=== PATIENT | female | born 1970 | race Caucasian/White ===

== ENCOUNTER 2020-08-06 08:05 | Outpatient (CLI) | payer OTHER, SELFPAY ==
--- NOTE | 2020-08-06 08:00 | ECG_ITS ---
Measurements Intervals [place] Rate: 73 P: 56 [place]: 153 QRS: -50 QRSD: 83 T: 5 QT: 372 QTc: 412 Interpretive Statements SINUS RHYTHM LEFT AXIS DEVIATION INCOMPLETE RIGHT BUNDLE BRANCH BLOCK LOW QRS VOLTAGE IN PRECORDIAL LEADS POOR R WAVE PROGRESSION, ANTERIOR LEADS INFERIOR INFARCT, AGE INDETERMINATE BORDERLINE T WAVE ABNORMALITY- ANTEROLATERAL LEADS BASELINE ARTIFACT- I, II, III, AVR, AVL, AVF ABNORMAL ECG Electronically Signed On 08-06-2020 8:34:00 CDT by Howie Molina D.O.
== END 2020-08-06 08:06 | disposition home or self-care (01) ==
LOC: ANHSURGERY 08:13
PROVIDERS: Visit Provider Orthopaedic Surgery
DX: I10 Essential (primary) hypertension (principal); Z01.818 Encounter for other preprocedural examination; I45.10 Unspecified right bundle-branch block
CPT/HCPCS: 93005

== ENCOUNTER → 2020-08-08 03:43 | Outpatient (CLI) | payer OTHER, SELFPAY ==
[2020-08-08 19:46] LABS: SARS-CoV-2 RNA PCR Negative
== END ==
PROVIDERS: Visit Provider Orthopaedic Surgery
DX: Z01.812 Encounter for preprocedural laboratory examination (principal); Z20.822 Contact with and (suspected) exposure to COVID-19
CPT/HCPCS: C9803; U0003; U0005

== ENCOUNTER 2020-08-12 01:04 | Day surgery (SDC) | payer OTHER, SELFPAY ==
[2020-08-03 13:40] VITALS: BMI 40.3
[2020-08-12] VITALS (7 sets, daily range): BP systolic 129–146; BP diastolic 71–92; PULSE 76–96; RESP 7–16; TEMP 36.4–36.6; O2SAT 97–100
--- NOTE | 2020-08-12 07:27 | WPDHPUPDATE1 ---
History and Physical Update Update Date/Time: 08/12/20 07:27 History and Physical has been reviewed, including an updated exam of the patient. There are NO changes in the patient's condition. Risks, benefits, and alternatives have been discussed and questions answered. Patient agrees to proceed with procedure.
[2020-08-12] MEDS: ACETAMINOPHEN 500 MG TABLET 1000 MG PO (09:24)
[2020-08-12] MEDS: CELECOXIB 200 MG CAPSULE PO (09:24)
[2020-08-12] MEDS: LACTATED RINGERS 1,000 ML 30 ML IV CONT ×2 (09:30→11:52)
--- NOTE | 2020-08-12 10:04 | WPDANESEPPF ---
Anes - Initial Pre Proc Eval Procedure: Operation Date: 08/12/20 11:00 Proposed Procedures p Left Knee Arthroscopy, Proceed As Indicated - Shawn Maier MD Date/Time: 08/12/20 10:04 Surgeon: Shawn Maier MD Pre Op Diagnosis: Lt medial/lateral meniscus tear, Left ACL tear Patient Data Age: 50 Gender: F Height: 5 ft 4 in Weight: 108.7 kg Last Vital Signs Temp 36.6 C 08/12/20 09:43 Pulse 76 08/12/20 09:43 Resp 16 08/12/20 09:43 BP 129/73 08/12/20 09:43 Pulse Ox 97 08/12/20 09:43 Allergies Allergy/AdvReac Type Severity Reaction Status Date / Time No Known Allergies Allergy Unknown Verified 08/03/20 13:38 Home Medications Medication Instructions Recorded Confirmed Type fluoxetine 40 mg capsule 80 mg PO DAILY cap 07/20/20 08/03/20 History lisinopril 10 mg tablet 10 mg PO DAILY 07/20/20 08/03/20 History cetirizine [Zyrtec] 10 mg PO DAILY 08/03/20 08/03/20 History multivit with min-folic acid 1 tablet PO DAILY 08/03/20 08/03/20 History [Daily Multiple For Women 50+] valacyclovir 500 mg PO DAILY 08/03/20 08/03/20 History chlorhexidine gluconate 4 % 1 applic TOPICAL ONCE #237 ml 08/05/20 Rx topical liquid Patient hx anesthesia problems: none Family hx anesthesia problems: none PMFSH Past Medical History Medical History History of DVT (deep vein thrombosis) Hx of migraines Hypertension Surgical History Surgical History History of repair of ACL Family History Family History Other Arthritis Heart disease High cholesterol Hypertension Non-Hodgkin lymphoma Social History Social History Smoking status: Never smoker Alcohol intake: current Drinks per week: 14 Alcohol use details: 1-2 BEERS/DAY Substance use: current Substance use type: marijuana Other substance usage details: EDIBLES, VAPE Last use: 08/01/20 Living arrangements: alone Gender identity (if verbalized by the patient): Female Spiritual care concerns: No Anes - Eval Final PreProcedure Day of Procedure 08/12/20 10:04 Patient weight: morbidly obese Heart: regular rate and rhythm Lungs: clear to auscultation Airway: Mallampati scale class II Neurological: alert and oriented Last oral intake: >/= 8 hours ASA classification: III Emergent: no Anesthetic plan: proceed Anesthesia type and monitoring: general LMA and standard monitoring Informed Consent: The patient's anesthetic plan and its attendant risks and benefits were discussed with the patient/family/POA. Questions were solicited and answers provided to the satisfaction of the patient/family/POA.
[2020-08-12] MEDS: ceFAZolin 2 GM/D5W 50 ML 2 GM/50 ML BAG IVPB (10:43)
[2020-08-12] MEDS: BUPIVACAINE HCL 0.5% PF 30 ML VIAL INFILTRATE (11:12)
[2020-08-12] MEDS: methylPREDNISolone ACETATE 80 MG/ML VIAL IM (11:19)
--- NOTE | 2020-08-12 11:58 | PM.PROC ---
Procedure Note - Detailed Date of procedure: 08/12/20 Pre-op diagnosis: Lt medial/lateral meniscus tear, Left ACL tear Post-op diagnosis: same Procedure performed: LEFT KNEE SCOPE WITH PARTIAL MEDIAL MENISCECTOMY AND MAJOR SYNOVECTOMY AND REMOVAL OF LOOSE BODY Description of procedure: PATIENT WAS TAKEN TO THE OR. LEFT LEG WAS PREPPED AND DRAPED STERILE. TROCARS WERE PLACED IN THE USUAL FASHION. CAMERA WAS INTRODUCED. THERE WAS CHONDROMALACIA TO THE PATELLA FEMORAL JOINT. THERE WAS A LOT OF SYNOVITIS IN ALL COMPARTMENTS. THE MEDIAL COMPARTMENT SHOWED CHONDROMALACIA TO THE MED FEMORAL CONDYLE. A SHAVER WAS USED TO PREFORM A CHONDROPLASTY. THERE WAS A COMPLEX MEDIAL MENISCUS TEAR. THE TEAR WAS RESECTED WITH A BITER AND A SHAVER DOWN TO A SMOOTH BASE. THERE WAS AN AREA OF FULL THICKNESS CARTILAGE DEFECT ON THE MEDIAL PLATEAU. ABOUT 20% OF THE MENISCUS WAS REMOVED. THE ACL GRAFT WAS INTACT. ANTERIOR DRAWER TEST WAS PREFORMED WITH DIRECT VISUALIZATION OF THE ACL AND IT WAS FOUND TO BE STABLE. THERE WAS A LARGE LOOSE BODY IN THE INTERCONDYLAR NOTCH. THIS WAS REMOVED WITH A GRABBER. IT MEASURED ABOUT 1CM X 2CM. THE LATERAL MENISCUS WAS NOT TORN. THE LAT COMPARTMENT HAD MINIMAL CHONDROMALACIA. A SYNOVECTOMY WAS PREFORMED. THE PATELLO FEMORAL JOINT UNDERWENT CHONDROPLASTY. THERE WAS NEAR FULL THICKNESS DEFECT IN THE TROCHLEA. SYNOVECTOMY WAS PREFORMED IN THE SUPERIOR MEDIAL COMPARTMENT. THE WOUNDS WERE APPROXIMATED WITH 4.0 NYLON. STERILE DRESSING WAS APPLIED. PATIENT WAS EXTUBATED. Anesthesia: GLMA Surgeon: Shawn Maier MD Estimated blood loss (mL): 5 Complications: No immediate complications Condition: stable Disposition: PACU
[2020-08-12] MEDS: fentaNYL CITRATE INJ (*CRX) 100 MCG/2 ML VIAL 25 MCG IV PUSH ×2 (12:13→12:20)
== END 2020-08-12 14:20 | disposition home or self-care (01) ==
PROVIDERS: Visit Provider Orthopaedic Surgery
PROC: (CPT 29870; principal; 2020-08-12 11:00)
DX: M23.332 Other meniscus derangements, other medial meniscus, left knee (principal); M94.262 Chondromalacia, left knee; M65.862 Other synovitis and tenosynovitis, left lower leg; M23.42 Loose body in knee, left knee; I10 Essential (primary) hypertension; Z86.718 Personal history of other venous thrombosis and embolism; F12.90 Cannabis use, unspecified, uncomplicated; E66.01 Morbid (severe) obesity due to excess calories; Z68.41 Body mass index [BMI] 40.0-44.9, adult
CPT/HCPCS: 29881; 29876; 93005; A9270; C9803; J0690; J1040; J2250; J2405; J2704; J3010; J7120; U0003; U0005